=== PATIENT | male | born 1980 | race Caucasian/White ===

== ENCOUNTER 2017-07-30 06:15 | Day surgery (SDC) | payer OTHER ==
[~2017-07-30 06:15] MED LIST: CEFAZOLIN 2 GM/50 ML (PMX) 50 ML IVPB
[2017-07-30] MEDS ORDERED: SUCCINYLCHOLINE CHLORIDE 100 MG/5 ML SYG IV (07:00)
[2017-07-30] MEDS ORDERED: DEXAMETHASONE 4 MG/ML 1 ML INJ (07:00)
[2017-07-30] MEDS ORDERED: CEFAZOLIN 1 GM INJ (07:00)
[2017-07-30] MEDS ORDERED: FENTAnyl 50 MCG/ML VIAL (07:31)
[2017-07-30] MEDS ORDERED: MIDAZOLAM 1 MG/ML 2 ML INJ (07:31)
[2017-07-30] MEDS ORDERED: LIDOCAINE 100 MG SYRINGE (07:32)
[2017-07-30] MEDS ORDERED: PROPOFOL 20 ML (07:32)
[2017-07-30] MEDS ORDERED: ROCURONIUM 50 MG INJ (07:33)
[2017-07-30] MEDS ORDERED: ONDANSETRON 4 MG INJ (08:00)
[2017-07-30] MEDS: LIDOCAINE 1%/EPI 30 ML INJ (09:08)
[2017-07-30] MEDS: BUPIVACAINE 0.25% (MPF) 30 ML INJ (09:08)
[2017-07-30] MEDS ORDERED: SUGAMMADEX SODIUM 200 MG/2 ML VIAL IV (09:32)
[2017-07-30] MEDS ORDERED: METOCLOPRAMIDE 10 MG INJ (09:32)
[2017-07-30] MEDS ORDERED: LACTATED RINGER'S 1,000 ML IV (09:40)
[2017-07-30] MEDS ORDERED: BACITRACIN 0.9 GM OINT (09:40)
[2017-07-30] MEDS ORDERED: DIPHENHYDRAMINE 50 MG INJ IV (10:00)
[2017-07-30] MEDS ORDERED: MEPERIDINE 25 MG INJ IV (10:00)
[2017-07-30] MEDS ORDERED: HYDROmorphONE 1 MG/5 ML IV SYRINGE IV (10:00)
[2017-07-30] MEDS ORDERED: HYDROCODONE/APAP (5/325) TAB PO ×2 (10:00)
[2017-07-30] MEDS ORDERED: morphine 2 MG INJ IV (10:00)
[2017-07-30] MEDS ORDERED: FENTAnyl 50 MCG/ML VIAL IV ×2 (10:00)
[2017-07-30] MEDS ORDERED: ONDANSETRON 4 MG INJ IV (10:00)
[2017-07-30] MEDS ORDERED: KETOROLAC 30 MG INJ IV (10:00)
[2017-07-30] MEDS: HYDROmorphONE 1 MG/5 ML IV SYRINGE IV (10:12)
[2017-07-30] MEDS: ONDANSETRON 4 MG INJ IV (11:10)
== END 2017-07-30 11:53 | disposition home or self-care (01) ==
LOC: SDS 06:15
DX: K81.1 Chronic cholecystitis (principal); K76.0 Fatty (change of) liver, not elsewhere classified; E83.19 Other disorders of iron metabolism
CPT/HCPCS: 47562; 88304; 88307; 88313